=== PATIENT | male | born 1965 | race Hispanic/Latino ===

== ENCOUNTER 2018-04-06 15:26 | Emergency (ER) | payer SELFPAY ==
[2018-04-06 15:29] VITALS: BP 159/97; PULSE 91; RESP 16; O2SAT 100; BMI 30.4
--- NOTE | 2018-04-06 16:18 | ED_ITS ---
HPI - Back Pain/Injury <Elina Sow PA-C - Last Filed: 04/06/18 21:39> General Chief Complaint: Back Pain/Injury Stated Complaint: LT LOWER LEG PAIN Time Seen by Provider: 04/06/18 15:54 Source: patient and family Mode of arrival: ambulatory Limitations: no limitations History of Present Illness HPI Narrative: this 52-year-old male comes to ED due to chronic left lower extremity pain. he states that he was seen by his primary care provider at [facility] for this 3 months ago, felt to be a tendon injury. He states that pain is present at rest at a low level, but much worse when he tries to walk. When he walks, it radiates up the side of the leg. He states that he has tried ibuprofen, cyclobenzaprine ( this made him too sleepy to use), prednisone, and low-dose gabapentin ( 100 mg b.i.d.) without relief. He states the only relief he got was from Toradol for a day or 2. he was seen at another local ED a couple of times and states he was told this is sciatica, but he states that he has no pain in his back, no pain in his posterior leg. He states sometimes at night, there is a tingling sensation in the side of his leg. He states that it has been harder to walk again in this last week secondary to pain. He denies any history of injury or trauma at all. He denies any swelling in the leg. He denies any chest pain or dyspnea. He has no history of back pain, hip pain, or injuries to these areas. He does have a follow-up appointment with his PCP in about 10 days. They had discussed MRI. Related Data Home Medications Medication Instructions Recorded Confirmed cyclobenzaprine 10 mg PO TID 04/06/18 04/06/18 gabapentin 100 mg PO BID 04/06/18 04/06/18 ibuprofen 800 mg PO TID 04/06/18 04/06/18 prednisone 1 dose PO DIRECTED 04/06/18 04/06/18 Previous Rx's Medication Instructions Recorded lidocaine [Lidoderm] 1 patch TOP DAILY #15 each 04/06/18 meloxicam 15 mg PO DAILY #14 tab 04/06/18 methocarbamol [Robaxin] 500 mg PO Q6H #20 tab 04/06/18 Allergies Allergy/AdvReac Type Severity Reaction Status Date / Time No Known Drug Allergies Allergy Verified 04/06/18 15:29 Review of Systems <Elina Sow PA-C - Last Filed: 04/06/18 21:39> Review of Systems ROS Unobtainable: All systems reviewed & are unremarkable except as noted in HPI and below Exam <Elina Sow PA-C - Last Filed: 04/06/18 21:39> Narrative Exam Narrative: GENERAL APPEARANCE: Patient sitting comfortably, in no distress. LUNGS: Clear to auscultation bilaterally. HEART: Regular rate and rhythm without murmur, normal S1, S2, no S3 or S4. EXTREMITIES: No cyanosis or edema. No L. calf tenderness NEUROLOGIC: Alert and oriented, normal speech. L. LE sensation grossly intact MS: Left lower extremity no effusion. He has no tenderness over the lumbosacral spine, left hip, femur, or and knee. Full range of motion throughout without tenderness. He has some point tenderness over the mid to distal lateral lower leg over the peroneus brevus tendon attachment, no tenderness elsewhere. No TTP over the ankle or foot where he has full AROM with strength intact against resistance Initial Vital Signs Initial Vital Signs: Vital Signs Pulse Rate 91 H 04/06/18 15:29 Respiratory Rate 16 04/06/18 15:29 Blood Pressure 159/97 H 04/06/18 15:29 Pulse Oximetry 100 04/06/18 15:29 <Ele Youngblood DO - Last Filed: 04/07/18 08:27> Initial Vital Signs Initial Vital Signs: Vital Signs Pulse Rate 91 H 04/06/18 15:29 Respiratory Rate 16 04/06/18 15:29 Blood Pressure 159/97 H 04/06/18 15:29 Pulse Oximetry 100 04/06/18 15:29 Course <Elina Sow PA-C - Last Filed: 04/06/18 21:39> Orders Ordered: Discontinued Medications Ketorolac Tromethamine (Toradol) 60 mg IM NOW ONE Stop: 04/06/18 16:49 Last Admin: 04/06/18 17:20 Dose: 60 mg Lidocaine (Lidoderm) 1 each TOP NOW ONE Stop: 04/06/18 16:57 Last Admin: 04/06/18 17:20 Dose: 1 each Vital Signs - 8 hr 04/06/18 15:29 04/06/18 17:00 04/06/18 18:30 Pulse Rate 91 H 94 H 89 Respiratory Rate 16 17 14 Blood Pressure 159/97 H 122/80 Blood Pressure [Left Arm] 131/83 Pulse Oximetry 100 100 97 <Ele Youngblood DO - Last Filed: 04/07/18 08:27> Orders Ordered: Discontinued Medications Ketorolac Tromethamine (Toradol) 60 mg IM NOW ONE Stop: 04/06/18 16:49 Last Admin: 04/06/18 17:20 Dose: 60 mg Lidocaine (Lidoderm) 1 each TOP NOW ONE Stop: 04/06/18 16:57 Last Admin: 04/06/18 17:20 Dose: 1 each Vital Signs - 8 hr 04/06/18 15:29 04/06/18 17:00 04/06/18 18:30 Pulse Rate 91 H 94 H 89 Respiratory Rate 16 17 14 Blood Pressure 159/97 H 122/80 Blood Pressure [Left Arm] 131/83 Pulse Oximetry 100 100 97 MDM - Back Pain/Injury <Elina Sow PA-C - Last Filed: 04/06/18 21:39> Imaging Data tib fib: Radiologist's impression: [place] [address] XRay Report Signed Patient: ELSA MUÑOZ [facility]#: [id number] : 1965Acct:[id number] Age/Sex: 52 / MDate of Service: 04/06/18 Loc: ED Accession Number: [id number] Procedure: XR tibia fibula LT 2V Ordering Provider: Elina Sow P.A-C PROCEDURE: XR TIBIA FIBULA LEFT 2V INDICATIONS: Per technologist, the patient reports lateral fibular pain for 3 months, sometimes lasting through the night. No known trauma. TECHNIQUE: 2 views of the tibia and fibula were acquired. COMPARISON: None. FINDINGS: Bones: No fractures or dislocations. No suspicious bony lesions. Soft tissues: No suspicious soft tissue calcifications or masses. IMPRESSION: No acute osseous abnormality of the left tibia and fibula. No radiographic findings to explain patient's reported left fibular pain. Dictated by: David Sutherland M.D. on 04/06/2018 at 17:18 Approved by: David Sutherland M.D. on 04/06/2018 at 17:22 Discharge Plan Departure Patient Disposition: Home Clinical Impression: Peroneal tendinitis, left leg Discharge Date/Time: 04/06/18 18:31 Interventions: ED Discharge Assessment Last Done: 04/06/18 18:30 Instructions: DI for Tendinitis Activity Restrictions/Additional Instructions: I think that your pain is due to inflammation of a tendon in your leg. Please call your PCP and let them know you were seen in the emergency room again and request earlier follow-up. Please start taking the meloxicam (anti- inflammatory pain reliever ) that I prescribed for you tomorrow morning. You can try the new muscle relaxant as needed. You may wish to try 1/2 tab since you had sleepiness with the other muscle relaxant. Do not drive until you know how to you react to it. You may increase it to a full tablet or 2 tablets per dose as needed as long as you are not too sleepy. I have also sent in a prescription for lidocaine patches for you. If these are not covered by your insurance, you can ask the pharmacist for a similar version [id number], and you can wear that for up to 12 hr daily to help with pain. As we talked about, it is going to take some time for this to get better, and physical therapy may help. It also may help to see a blocker and polisher to see whether they can prescribe insoles or orthotics to help take the stress off of this area. Please discuss this with your PCP as well. Creo que hartman dolor se debe a la inflamaci?n de un tend?n en la pierna. Llame a hartman PCP y h?starla saber que fue atendido nuevamente en la giancarlo de emergencias y solicite un seguimiento m?s temprano. Comience a berhane el meloxicam (analg?sico antiinflamatorio) que le prescrib? ma?regla por la ma?regla. Puede probar el nuevo relajante muscular seg?n sea necesario. Es posible que desee probar 1/2 tab, ya que tuvo somnolencia con el otro relajante muscular. No conduzca hasta que sepa c?mo reaccionar ante ?l. Puede aumentarlo a bossman tableta completa o 2 tabletas por dosis, seg?n sea necesario, siempre y cuando no tenga mucho martha?o. Tambi?n he enviado bossman receta para parches de lidoca?na para usted. Si hartman seguro no lo cubre, puede pedirle al farmac?utico bossman versi?n similar de venta josette, y puede usarla los hasta 12 horas diarias para ayudar con el dolor. Mientras hablamos, berhane? alg?n tiempo para que esto mejore, y la terapia f?ugo puede ayudar. Tambi?n puede ayudar a yash a un pod?logo para yash si pueden prescribir plantillas u ortesis para ayudar a aliviar el estr?s de esta ?mercy. Discuta esto con hartman PCP tambi?n. Prescriptions: New methocarbamol [Robaxin] 500 mg tablet 500 mg PO Q6H Qty: 20 RF: 0 meloxicam 15 mg tablet 15 mg PO DAILY Qty: 14 RF: 0 lidocaine [Lidoderm] 5 % adhesive patch,medicated 1 patch TOP DAILY Qty: 15 RF: 0 No Action cyclobenzaprine 10 mg tablet 10 mg PO TID RF: 0 prednisone 10 mg tablet 1 dose PO DIRECTED RF: 0 ibuprofen 800 mg tablet 800 mg PO TID RF: 0 gabapentin 100 mg capsule 100 mg PO BID RF: 0 Referrals: Javed Jordan MD [Non-Staff] - <Ele Youngblood DO - Last Filed: 04/07/18 08:27> Cosign ED Attending Cosignature Attestation: I was immediately available in the department for consultation. Documentation has been reviewed. I agree with assessment and plan.
--- NOTE | 2018-04-06 16:48 | DI.RAD.S_ITS ---
PROCEDURE: XR TIBIA FIBULA LEFT 2V INDICATIONS: Per technologist, the patient reports lateral fibular pain for 3 months, sometimes lasting through the night. No known trauma. TECHNIQUE: 2 views of the tibia and fibula were acquired. COMPARISON: None. FINDINGS: Bones: No fractures or dislocations. No suspicious bony lesions. Soft tissues: No suspicious soft tissue calcifications or masses. IMPRESSION: No acute osseous abnormality of the left tibia and fibula. No radiographic findings to explain patient's reported left fibular pain. Dictated by: David Sutherland M.D. on 04/06/2018 at 17:18 Approved by: David Sutherland M.D. on 04/06/2018 at 17:22
[2018-04-06 17:00] VITALS: BP 131/83; PULSE 94; RESP 17; O2SAT 100
[2018-04-06] MEDS: LIDOCAINE PATCH 1 EACH ADH..PATCH TOP (17:20)
[2018-04-06] MEDS: KETOROLAC 60 MG/2 ML VIAL IM (17:20)
[2018-04-06 18:30] VITALS: BP 122/80; PULSE 89; RESP 14; O2SAT 97
== END 2018-04-06 18:31 | disposition home or self-care (01) ==
PROVIDERS: Emergency Provider Internal Medicine
DX: M76.72 Peroneal tendinitis, left leg (principal)
CPT/HCPCS: 73590; 96372; 99282; 99283; J1885

== ENCOUNTER → 2018-06-21 13:32 | Outpatient (CLI) | payer SELFPAY ==
[2018-06-21 14:00] LABS: Hematocrit 47.7 % (41-53); Hemoglobin 16.2 g/dL (13.5-17.5); Mean Corpuscular Hemoglobin 30.4 PG (26-34); Mean Corpuscular Volume 89.4 fL (80-100); Platelet Count 274 X10^3/uL (150-400); Red Blood Cell Count 5.33 X10^6/uL (4.5-5.9); Red Cell Distribution Width 13.4 % (11.6-14.8); White Blood Cell Count 10.1 X10^3/uL (4.5-11.0)
[2018-06-21 14:35] LABS: BUN Creatinine Ratio 21.3 (6-22); Blood Urea Nitrogen 17 mg/dL (9-20); Calcium 9.1 mg/dL (8.4-10.2); Carbon Dioxide 30 mmol/L (22-32); Chloride 102 mmol/L (98-107); Estimated Glomerular Filt Rate > 60.0 mL/min (>60); Glucose 85 mg/dL (70-100); HEMOLYSIS 46 (0-50); Potassium 4.6 mmol/L (3.4-5.1); Sodium 138 mmol/L (137-145)
== END ==
PROVIDERS: Visit Provider Orthopaedic Surgery Orthopaedic Surgery of the Spine
DX: Z01.818 Encounter for other preprocedural examination (principal)
CPT/HCPCS: 36415; 80048; 85027